=== PATIENT | female | born 1995 | race Caucasian/White ===

== ENCOUNTER 2025-01-22 16:33 | Outpatient (CLI) | payer OTHER | END 2025-01-22 17:41 | disposition home or self-care (01) | LOC: NST 16:33 | PROVIDERS: ATTEND Obstetrics & Gynecology Maternal & Fetal Medicine | DX: Z34.82 Encounter for supervision of other normal pregnancy, second trimester (principal) ==

== ENCOUNTER 2025-02-13 16:07 | Outpatient (CLI) | payer OTHER | END 2025-02-13 17:53 | disposition home or self-care (01) | LOC: NST 16:07 | PROVIDERS: ATTEND Obstetrics & Gynecology Maternal & Fetal Medicine | DX: Z34.83 Encounter for supervision of other normal pregnancy, third trimester (principal) ==

== ENCOUNTER 2025-03-21 10:41 | Outpatient (CLI) | payer OTHER | END 2025-03-21 11:26 | disposition home or self-care (01) | LOC: NST 10:41 | PROVIDERS: ATTEND Obstetrics & Gynecology Maternal & Fetal Medicine | DX: Z34.83 Encounter for supervision of other normal pregnancy, third trimester (principal) ==

== ENCOUNTER 2025-03-28 11:38 | Outpatient (CLI) | payer OTHER | END 2025-03-28 12:35 | disposition home or self-care (01) | LOC: NST 11:38 | PROVIDERS: ATTEND Obstetrics & Gynecology Maternal & Fetal Medicine | DX: Z34.83 Encounter for supervision of other normal pregnancy, third trimester (principal) ==

== ENCOUNTER 2025-04-05 10:10 | Outpatient (CLI) | payer OTHER | END 2025-04-05 11:18 | disposition home or self-care (01) | LOC: NST 10:10 | PROVIDERS: ATTEND Obstetrics & Gynecology Maternal & Fetal Medicine | DX: Z34.83 Encounter for supervision of other normal pregnancy, third trimester (principal) ==

== ENCOUNTER 2025-04-05 14:00 | Inpatient (IN) | payer OTHER ==
[~2025-04-05] VITALS: Ht 167.6 cm; Wt 99.8 kg
[2025-04-15] MEDS ORDERED: PRENATAL TABLE1 EAC4 PO (01:11)
[2025-04-15] MEDS ORDERED: LEVOXYL137 MCG PO (01:12)
[2025-04-16] VITALS (8 sets, daily range): BP systolic 108–135; BP diastolic 56–76
[2025-04-16] MEDS ORDERED: OXYTOCIN 1,000 ML IV SCH (08:45)
[2025-04-16] MEDS ORDERED: RINGERS SOLUTION,LACTATED 1,000 ML IV SCH (08:45)
[2025-04-16] MEDS ORDERED: PREVACID15 M1 (09:00)
[2025-04-16 09:18] LABS: BASO % 0.5 % (0.1-1.2); EOS # 0.18 (0.04-0.54); EOS % 1.1 % (0.7-7.0); LYMPH # 2.04 (1.18-3.74); LYMPH % 12.9 % (19.3-53.1); MEAN PLATELET VOLUME 10.80 fl (9.4-12.4); MONO # 0.86 (0.24-0.82); MONO % 5.4 % (4.7-12.5); NEUT # 12.49 (1.56-6.13); NEUT % 79.3 % (34.0-71.1); RED CELL DISTRIBUTION WIDTH 14.8 % (11.6-14.4)
[2025-04-16] MEDS ORDERED: MORPHINE SULFATE 4 MG/ML CARTRIDGE IV STA (09:30)
[2025-04-16 09:40] LABS: INR < 0.93
[2025-04-16] MEDS ORDERED: ERYTHROMYCIN BASE OPHT 1GM EACH TUBE OP ONE (10:31)
[2025-04-16] MEDS ORDERED: OXYTOCIN 20 UNITS/1000ML RL PIGGYBAG IV ONE (10:31)
[2025-04-16] MEDS ORDERED: CHLORHEXIDINE GLUCONATE 120 ML BOTTLE TOP ONE (10:31)
[2025-04-16] MEDS ORDERED: LIDOCAINE HCL 1% 10ML VIAL ONE (10:32)
[2025-04-16] MEDS ORDERED: DOCUSATE SODIUM 100MG CAP PO SCH (11:43)
[2025-04-16] MEDS ORDERED: ACETAMINOPHEN WITH CODEINE 1 UDTAB TABLET PO PRN (12:45)
[2025-04-16] MEDS ORDERED: FAMOTIDINE/PF 20 MG/2 ML VIAL IV PUSH PRN (14:00)
[2025-04-17] VITALS: BP 112/64
[2025-04-17] MEDS ORDERED: LEVOTHYROXINE SODIUM 137 MCG TABLET PO STA (07:50)
[2025-04-17 07:53] VITALS: BP 104/73
[2025-04-18 02:02] VITALS: BP 115/68
[2025-04-18] MEDS ORDERED: LEVOTHYROXINE SODIUM 137 MCG TABLET PO SCH (06:00)
[2025-04-18 08:24] VITALS: BP 105/64
[2025-04-18 16:31] VITALS: BP 131/84
== END 2025-04-18 18:12 | disposition home or self-care (01) | DRG 768 ==
LOC: OB/GYN 04-16 08:30 → LDR 04-16 08:30 → OB/GYN 04-16 13:12 → LDR 04-19 14:00
PROVIDERS: ADMIT Obstetrics & Gynecology; ATTEND Obstetrics & Gynecology
PROC: 10E0XZZ Delivery of Products of Conception, External Approach (ICD-10-PCS; principal; 2025-04-16)
PROC: 0DQR0ZZ Repair Anal Sphincter, Open Approach (ICD-10-PCS; 2025-04-16)
PROC: 4A1HXCZ Monitoring of Products of Conception, Cardiac Rate, External Approach (ICD-10-PCS; 2025-04-16)
DX: O70.21 Third degree perineal laceration during delivery, IIIa (principal); Z37.0 Single live birth; Z3A.39 39 weeks gestation of pregnancy

== ENCOUNTER 2025-04-10 15:23 | Outpatient (CLI) | payer OTHER | END 2025-04-10 15:43 | disposition home or self-care (01) | LOC: NST 15:23 | PROVIDERS: ATTEND Obstetrics & Gynecology Maternal & Fetal Medicine | DX: Z34.83 Encounter for supervision of other normal pregnancy, third trimester (principal) ==

== ENCOUNTER 2025-04-12 09:53 | Outpatient (CLI) | payer OTHER | END 2025-04-12 10:32 | disposition home or self-care (01) | LOC: NST 09:53 | PROVIDERS: ATTEND Obstetrics & Gynecology Maternal & Fetal Medicine | DX: Z34.83 Encounter for supervision of other normal pregnancy, third trimester (principal) ==

== ENCOUNTER 2025-04-15 01:10 | Outpatient (CLI) | payer OTHER ==
[~2025-04-15] VITALS: Ht 167.6 cm; Wt 99.8 kg
[2025-04-15 00:55] VITALS: BP 143/90
[2025-04-15] MEDS ORDERED: PRENATAL TABLE1 EAC4 PO (01:11)
[2025-04-15] MEDS ORDERED: LEVOXYL137 MCG PO (01:12)
[2025-04-15] MEDS ORDERED: RINGERS SOLUTION,LACTATED 1,000 ML IV SCH (01:15)
[2025-04-15] MEDS ORDERED: MORPHINE SULFATE 4 MG/ML CARTRIDGE IV PRN (01:15)
[2025-04-15 04:07] VITALS: BP 117/66
[2025-04-15 07:30] VITALS: BP 116/61
[2025-04-15 11:19] VITALS: BP 111/70
[2025-04-15 12:14] VITALS: BP 116/61
[2025-04-16] MEDS ORDERED: PREVACID15 M1 (09:00)
== END 2025-04-15 12:28 | disposition home or self-care (01) ==
LOC: OBS/DEL 01:10
PROVIDERS: ATTEND Obstetrics & Gynecology Gynecology
DX: O26.893 Other specified pregnancy related conditions, third trimester (principal); Z3A.39 39 weeks gestation of pregnancy